=== PATIENT | male | born 1950 | race Caucasian/White ===

== ENCOUNTER 2020-02-02 12:20 | Outpatient (CLI) | payer OTHER | END 2020-02-02 12:21 | disposition home or self-care (01) | LOC: LAB.S 12:20 | PROVIDERS: ATTEND Nurse Practitioner | DX: Z29.9 Encounter for prophylactic measures, unspecified (principal) | CPT/HCPCS: 85610 ==

== ENCOUNTER 2020-02-11 16:18 | Outpatient (CLI) | payer OTHER | END 2020-02-11 16:19 | disposition home or self-care (01) | LOC: LAB.S 16:18 | PROVIDERS: ATTEND Nurse Practitioner | DX: Z29.9 Encounter for prophylactic measures, unspecified (principal) | CPT/HCPCS: 85610 ==

== ENCOUNTER 2020-02-24 12:41 | Outpatient (CLI) | payer MEDICARE | END 2020-02-24 12:42 | disposition home or self-care (01) | LOC: LAB.S 12:41 | PROVIDERS: ATTEND Nurse Practitioner | DX: Z29.9 Encounter for prophylactic measures, unspecified (principal) | CPT/HCPCS: 85610 ==

== ENCOUNTER 2020-03-04 14:32 | Outpatient (CLI) | payer MEDICARE | END 2020-03-04 14:33 | disposition home or self-care (01) | LOC: LAB.S 14:32 | PROVIDERS: ATTEND Nurse Practitioner | DX: Z29.9 Encounter for prophylactic measures, unspecified (principal) | CPT/HCPCS: 85610 ==